=== PATIENT | female | born 1975 | race Asian ===

== ENCOUNTER → 2024-12-15 | Outpatient (CLI) | payer MEDICAID, SELFPAY ==
--- NOTE | 2024-12-15 13:00 | XR_ITS ---
Examination: Breast ultrasound complete, bilateral Date and time of exam: December 15, 2024 1324 hrs. Indications: Mammogram November 08, 2022 8 mm focal asymmetry upper left breast Technique: Real-time grayscale ultrasonographic imaging bilateral breasts, including all 4 quadrants as well as nipple retroareolar and axillary regions. Findings: Right mastectomy Sonographic images left breast 3:00 nodule 5 x 5 mm circumscribed 4:00 cyst 3 x 3 mm 7:00 hyperechoic nodule 5 x 3 mm 8:00 hyperechoic nodule 3 x 3 mm 3:00 cyst 3 x 3 mm Additional smaller cysts Impression: BI-RADS Category 2: Benign findings One additional 6 month left breast sonogram follow-up is needed to document stability of solid nodules described above
--- NOTE | 2024-12-15 13:20 | XR_ITS ---
Examination: Screening digital mammography, unilateral left Computer aided detection 3-D breast Tomosynthesis, unilateral Date and time of exam: 12/15/2024, 1:45 PM Comparisons: September 2021 through November 2022 Indications: Screening, prior right mastectomy Technique: Nonmagnified MLO, CC views of the left breast to been obtained, reconstructed from 3-D Tomosynthesis images. R2 computer aided detection program utilized for evaluation of suspicious masses and/or abnormal calcifications. 3-D Tomosynthesis images obtained. Findings: The breasts are heterogeneously dense, which may obscure small masses. No evidence of abnormal masses or suspicious calcifications. Impression: BI-RADS category 1: Negative findings (within normal) Recommend 1 year follow-up mammogram
== END | disposition home or self-care (01) ==
PROVIDERS: PCP Physician Assistant; Referring Provider Physician Assistant; Visit Provider Physician Assistant
DX: Z12.31 Encounter for screening mammogram for malignant neoplasm of breast (principal); R92.312 Mammographic fatty tissue density, left breast; N63.25 Unspecified lump in the left breast, overlapping quadrants; N63.24 Unspecified lump in the left breast, lower inner quadrant; N63.23 Unspecified lump in the left breast, lower outer quadrant
CPT/HCPCS: 76641; 77063; 77067

== ENCOUNTER 2025-01-06 16:24 | Emergency (ER) | payer MEDICAID, SELFPAY ==
[2025-01-06 16:24] VITALS: BMI 29.2
--- NOTE | 2025-01-06 16:25 | EKG_ITS ---
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
[2025-01-06 16:44] VITALS: BP 171/98; PULSE 99; RESP 20; TEMP 37.2; O2SAT 99
--- NOTE | 2025-01-06 16:50 | XR_ITS ---
Examination: PA lateral chest 2 views TECHNIQUE: Upright PA lateral chest 2 views Examination type: January 06, 2025 1658 hours INDICATIONS: Chest pain beginning 2 days ago. FINDINGS: Normal heart size Lungs are clear. The osseous structures are intact IMPRESSION: No active disease
--- NOTE | 2025-01-06 16:50 | PD.EDRME ---
Rapid Medical Screening Exam RME Arrival date/time: 01/06/25 16:24 49-year-old female with history of hypertension presents the emergency department today for complaints of chest pain today Chief Complaint: Chest Pain Vital signs: Vital Signs Temperature 99.0 F 01/06/25 16:44 Pulse Rate 99 01/06/25 16:44 Respiratory Rate 20 01/06/25 16:44 Blood Pressure 171/98 H 01/06/25 16:44 Pulse Oximetry (%) 99 01/06/25 16:44 Oxygen Delivery Method Room Air 01/06/25 16:44
[2025-01-06 18:10] LABS: Basophils # (Auto) 0.1 Thou/mm3 (0.0-0.2); Basophils % (Auto) 1 % (0-2.5); Eosinophils # (Auto) 0.2 Thou/mm3 (0.0-0.5); Eosinophils % (Auto) 2 % (0-10); Hematocrit 37.9 % (36.0-46.0); Hemoglobin 12.3 g/dL (12.0-16.0); Immature Granulocytes % (Auto) 0 % (0-0); Immature Granulocytes Auto 0.02 Thou/mm3 (0.00-0.00); Lymphocytes % (Auto) 25 % (10-50); Mean Corpuscular HGB Conc 32.5 g/dl (31.0-37.0); Mean Corpuscular Hemoglobin 25.8 pg (25.0-35.0); Mean Corpuscular Volume 80 fL (80-100); Monocytes # (Auto) 0.5 Thou/mm3 (0.0-0.8); Monocytes % (Auto) 6 % (0-12); Neutrophils # (Auto) 5.3 Thou/mm3 (1.8-7.7); Neutrophils % (Auto) 66 % (37-80); Nucleated Red Blood Cell % 0 /100 WBC (0); Platelet Count 336 Thou/mm3 (140-440); RDW Standard Deviation 42.9 fL (36.4-46.3); Red Blood Count 4.77 Miln/mm3 (4.00-5.20)
[2025-01-06 18:29] LABS: B-Type Natriuretic Peptide < 20 pg/mL (0-100)
[2025-01-06 18:32] LABS: Alanine Aminotransferase 18 U/L (10-49); Albumin, Serum 5.3 gm/dL (3.5-5.0); Albumin/Globulin Ratio 1.4 (1.2-2.2); Alkaline Phosphatase 68 U/L (46-116); Anion Gap 13 (7-16); Aspartate Amino Transferase 88 U/L (0-34); BUN/Creatinine Ratio 18 Ratio (12-20); Bilirubin,Total 0.4 mg/dL (0.3-1.2); Blood Urea Nitrogen 14 mg/dL (9-23); Calcium 10.2 mg/dL (8.3-10.6); Calcium (Corrected) 10.2 mg/dL (8.5-10.1); Carbon Dioxide 20.3 mMol/L (20.0-31.0); Chloride 100 mMol/L (98-107); Creatinine (Component) 0.8 mg/dL (0.6-1.3); Estimated Creatinine Clearance 74.8 mL/min (>60); Globulin 3.8 gm/dL (2.3-3.5); Glucose 109 mg/dL (74-106); Osmolality,Calculated 267 (275-295); Potassium 3.3 mMol/L (3.4-5.1); Sodium 133 mMol/L (136-145); Total Protein 9.1 gm/dL (5.7-8.2); Troponin I < 0.002 ng/mL (0.0-0.045); eGFR > 60 See Note
[2025-01-06 18:38] LABS: HCG,Qualitative Serum Negative
[2025-01-06 21:07] LABS: Troponin I < 0.002 ng/mL (0.0-0.045)
--- NOTE | 2025-01-06 21:21 | PD.EDCHEST ---
ED Chest Pain RME/HPI General Chief Complaint: Chest Pain Stated Complaint: CHEST PAIN Time Seen by Provider: 01/06/25 20:11 Arrival date/time: 01/06/25 16:24 RME / HPI RME / HPI narrative: 49-year-old female patient with significant history of hypertension, came in for evaluation regarding left-sided chest pain. Onset of symptoms about 3 PM today while driving, and sudden onset of left-sided chest pain, described as dull ache, severity moderate. Patient denies any diaphoresis. Denies any shortness of breath. Denies any cough. Denies any fever denies any other complaints. No medications taken prior travel. Related Data Home Medications ?Medication ?Instructions ?Recorded ?Confirmed Losartan Potassium * (COZAAR *) 100 mg PO QDAY #0 tabs 02/02/15 03/06/18 Allergies Allergy/AdvReac Type Severity Reaction Status Date / Time No Known Allergies Allergy Verified 01/06/25 16:26 Review of Systems Review of Systems Narrative Review of Systems: Review of system reviewed and within normal limits except mentioned in HPI ED Exam Narrative Physical exam: VITAL SIGNS: Reviewed. GENERAL APPEARANCE: Alert and interactive, follows commands, no acute distress, HEAD AND FACE: Non-traumatic. ENT: PERRL, pink conjunctivitis, eyelid no trauma, Mucous membrane moist. NECK: Supple, nontender, no nuchal rigidity. CHEST: No tenderness, no crepitus, no paradoxical movement, no retractions. LUNGS: Clear, well ventilated, symmetric, no rales, no wheezing, no ronchi, no stridor, good breath sounds bilaterally. HEART: Regular rate, regular rhythm, no murmur, no gallops. ABDOMEN: Soft, positive bowel sounds, nondistended, no guarding, nontender, no rebound, no masses, RECTAL: Deferred. GENITAL: Deferred. NEUROLOGICAL: Gross motor function intact sensory function intact, Appropriate for age. MUSCULOSKELETAL: low back nontender, full range of motion. EXTREMITIES: Nontender, full range of motion. SKIN: Color pink, dry, no rash, no lacerations, no abrasions, no contusions. LYMPHATICS: Deferred. Course Quality Measures none Orders Category Date Time Status EKG (ED ONLY) *Do not use* NOW Care 01/06/25 16:25 Completed EKG (ED Only) Stat Exams 01/06/25 16:25 Draft XR chest 2V Stat Exams 01/06/25 16:50 Completed B-Type Natriuretic Peptide Stat Lab 01/06/25 17:47 Completed CBC Stat Lab 01/06/25 17:47 Completed Comprehensive Metabolic Panel Stat Lab 01/06/25 17:47 Completed HCG,Qualitative Serum Stat Lab 01/06/25 17:47 Completed Troponin I Stat Lab 01/06/25 17:47 Completed Troponin I Stat Lab 01/06/25 20:31 Completed Vital Signs Vital signs: Vital Signs Temperature 99.0 F 01/06/25 16:44 Pulse Rate 99 01/06/25 16:44 Respiratory Rate 20 01/06/25 16:44 Blood Pressure 171/98 H 01/06/25 16:44 Pulse Oximetry (%) 99 01/06/25 16:44 Oxygen Delivery Method Room Air 01/06/25 16:44 Chest Pain MDM Narrative MDM Narrative:: 49-year-old female patient with significant history of hypertension, came in for evaluation regarding left-sided chest pain. Onset of symptoms about 3 PM today while driving, and sudden onset of left-sided chest pain, described as dull ache, severity moderate. Patient denies any diaphoresis. Denies any shortness of breath. Denies any cough. Denies any fever denies any other complaints. No medications taken prior travel. Patient's cardiac workup all came back normal including troponin x 2 3 hours apart. I personally reviewed and interpreted the x-ray of this patient. There is no acute abnormalities found, no infiltrates no pneumothorax no hemothorax normal chest x-ray. Review of other structures was without significant abnormal findings also. I additionally reviewed the radiologist report and agree with the interpretation. EKG showed sinus rhythm, ventricular rate of [address] segment elevation depression noted. On reevaluation prior to discharge patient told me that her chest pain is totally gone. Patient data External records reviewed:: None Clinical information provided by:: patient Social determinants that could affect healthcare access:: none Patient has the following chronic illnesses:: Hypertension How is presenting disease/condition affected by chronic disease/condition?: exacerbated by Evaluation data The following diagnostics were reviewed and interpreted by me:: lab results, radiology exam(s) and EKG tracing(s) Lab and/or radiology exams considered but not ordered:: None Interpretation Summary: See results in MDM Medications / Prescriptions Medications or Prescriptions considered but not ordered:: None Medication administrations:: None Consultations Consultation(s) initiated? (list below): No Diagnosis Chest Pain Differential Diagnosis: pneumothorax, atypical chest pain and chest pain Most likely diagnosis given after review of the tests above:: Chest pain Admission Indicated Admission indicated?: not indicated Admission Request Was there a request for admission?: No Disposition Plan Disposition Plan: Discharge Discharge Attestation Discharge Attestation: The patient was given an opportunity to ask questions and understood the discharge instructions. Discharge instructions specifically effects, indications for sooner follow up or return to the emergency department, and the expected course of current diagnosis. Patient condition: Stable Discharge Plan Plan Patient Disposition: HOME (Self Care) Disposition Comment: Stable Prescriptions/Referrals Prescriptions/Med Rec: No Action Losartan Potassium * (COZAAR *) 25 MG tablet 100 mg PO QDAY Qty: 0 Referrals: Asia Carranza PA-C [Primary Care Provider] - In 1 week Problem List Clinical Impression: Chest pain Patient/Caregiver Discharge Instructions Discharge Activity: activity as tolerated Education Materials: ED Chest Pain, Noncardiac Additional Instructions: Thank you for the opportunity for serving you today. You are stable for discharged . You are advised to: Follow-up with your PCP in 1 to 2 days Return to ED for worsening of symptoms Print Language: Stateless Stand Alone Forms: Aamra Award Info., Patient Portal Info Letter ADRIAN/MARJORIE Supervising Physician VANDA Supervising Physician: MD Janell
[2025-01-06 21:28] VITALS: BP 180/104; PULSE 60; RESP 14; TEMP 36.6; O2SAT 100
== END 2025-01-06 21:30 | disposition home or self-care (01) ==
PROVIDERS: Nurse Practitioner Family; Nurse Practitioner Primary Care; Emergency Provider Emergency Medicine; PCP Physician Assistant
DX: R07.89 Other chest pain (principal); I10 Essential (primary) hypertension
CPT/HCPCS: 36415; 71046; 80053; 83880; 84484; 84703; 85025; 93005; 99283